=== PATIENT | male | born 1990 | race African-American/Black ===

== ENCOUNTER 2021-11-30 08:04 | Emergency (ER) | payer SELFPAY ==
[~2021-11-30] VITALS: Ht 188 cm; Wt 181.0 kg
[2021-11-30 09:23] VITALS: BP 142/85
== END 2021-11-30 09:34 | disposition home or self-care (01) | DRG 556 ==
LOC: ED 08:04
DX: M79.672 Pain in left foot (principal); Z68.43 Body mass index [BMI] 50.0-59.9, adult; F17.210 Nicotine dependence, cigarettes, uncomplicated; E66.9 Obesity, unspecified; X58.XXXA Exposure to other specified factors, initial encounter; Y93.89 Activity, other specified; Y92.009 Unspecified place in unspecified non-institutional (private) residence as the place of occurrence of the external cause

== ENCOUNTER 2023-02-05 11:53 | Emergency (ER) | payer SELFPAY ==
[~2023-02-05] VITALS: Ht 188 cm; Wt 168.4 kg
[2023-02-05] MEDS ORDERED: TAM75CAP PO (13:21)
[2023-02-05 13:26] VITALS: BP 148/96
== END 2023-02-05 13:31 | disposition home or self-care (01) | DRG 153 ==
LOC: ED 11:53
DX: J11.1 Influenza due to unidentified influenza virus with other respiratory manifestations (principal); F17.210 Nicotine dependence, cigarettes, uncomplicated; Z20.822 Contact with and (suspected) exposure to COVID-19

== ENCOUNTER 2023-02-20 18:30 | Emergency (ER) | payer SELFPAY ==
[~2023-02-20] VITALS: Ht 188 cm; Wt 145.0 kg
[~2023-02-20 18:30] MED LIST: TAM75CAP PO
[2023-02-20] MEDS ORDERED: VOLTAREN75 MG PO (21:17)
[2023-02-20 21:24] VITALS: BP 136/85
== END 2023-02-20 21:35 | disposition home or self-care (01) | DRG 563 ==
LOC: ED 18:30
DX: S29.011A Strain of muscle and tendon of front wall of thorax, initial encounter (principal); X50.0XXA Overexertion from strenuous movement or load, initial encounter

== ENCOUNTER 2023-07-10 08:53 | Emergency (ER) | payer SELFPAY ==
[~2023-07-10] VITALS: Ht 188 cm; Wt 128.0 kg
[~2023-07-10 08:53] MED LIST changes: +VOLTAREN75 MG PO
[2023-07-10 09:15] VITALS: BP 145/93
[2023-07-10 09:31] VITALS: BP 140/93
[2023-07-10 09:46] VITALS: BP 136/93
[2023-07-10 10:01] VITALS: BP 142/101
[2023-07-10 10:56] VITALS: BP 147/91
== END 2023-07-10 11:00 | disposition home or self-care (01) | DRG 125 ==
LOC: ED 08:53
DX: H10.9 Unspecified conjunctivitis (principal); F17.200 Nicotine dependence, unspecified, uncomplicated